=== PATIENT | male | born 1990 | race Caucasian/White ===

== ENCOUNTER 2024-12-31 08:07 | Day surgery (SDC) | payer OTHER, SELFPAY ==
[2024-12-25 10:05] VITALS: BMI 27.0
--- NOTE | 2024-12-31 06:03 | PM.HP.IH.1 ---
History of Present Illness History of Present Illness Date Patient Seen: 12/31/24 Time Patient Seen: 06:03 Chief complaint: SDC Narrative: Patient presents for laparoscopic RIHR this morning. [facility] Social History (Updated 11/06/24 @ 13:50 by Ankit Ivey MA) marital status: household members: spouse occupational status: employed Meds Home Medications and Allergies Allergies Allergy/AdvReac Type Severity Reaction Status Date / Time No Known Drug Allergies Allergy Unverified 11/06/24 13:30 Exam Narrative Exam Narrative: Const General: healthy appearing, comfortable and no acute distress Orientation: alert and oriented x3 HENMT Head: normal to inspection Ears: hearing grossly normal bilaterally Eyes Visual Fernandez: normal visual fernandez by confrontation Conjunctivae: conjunctivae normal Sclera: sclerae normal EOM: EOM intact bilaterally Neck Neck: normal visual inspection Resp Effort & Inspection: normal respiratory effort and able to speak in complete sentences Cardio Rate: regular rate GI Palpation: soft (non-tender) Other: +right inguinal hernia on palpation, reducible. LT side strong and intact. Extrem Other: without pitting edema Assessment & Plan Assessment and plan (1) Right inguinal hernia: Status: Acute Plan Right inguinal hernia - Plan laparoscopic right inguinal hernia repair with mesh (TEP) using no-tack technique. The risks, benefits and options regarding the procedure were explained to the patient in detail. Risk discussion included but not limited to: bleeding, infection, recurrence, urinary retention, chronic pain. The patient was encouraged to ask questions and they were answered to their satisfaction. The patient understands and is agreeable to proceed. Time-Based Coding :: [TOTAL MINUTES] spent with patient and on the chart (including review of chart, obtaining history, exam, reviewing outside data, placing orders, documenting exam and treatment plan, and counseling patient) on [DATE]. PROFEE Burr Picker Document charge(s): Yes Charge Codes Inpatient/observation care including admit and discharge same day: [id number]
[2024-12-31] MEDS: ACETAMINOPHEN 325 MG TABLET 975 MG PO (08:35)
[2024-12-31] MEDS: LACTATED RINGERS 1,000 ML 42 ML IV (08:37)
[2024-12-31 08:40] VITALS: BP 134/84; PULSE 76; RESP 15; TEMP 36.8; O2SAT 100; BMI 28.4
[2024-12-31] MEDS: SCOPOLAMINE 1 PATCH TOP (09:00)
[2024-12-31 10:10] VITALS: BP 141/81; PULSE 91; RESP 16; TEMP 36.5; O2SAT 98
--- NOTE | 2024-12-31 10:14 | P.OP_ITS ---
Operative Date/Time/Diagnoses Date of procedure: 12/31/24 Time of procedure: 10:14 Pre-op diagnosis: Right inguinal hernia Post-op diagnosis: same (Indirect right inguinal hernia, cord lipoma) Procedure & Clinicians Procedure: Laparoscopic right inguinal hernia repair with mesh TEP Same procedure(s) as scheduled: Yes Indications: 34yo M with symptomatic right inguinal hernia Surgeon: Calvin Shrestha Assisted?: No Anesthesia Type: General Operative Notes Findings: Indirect right inguinal hernia, large cord lipoma Closure Type: primary Specimen(s): none sent Applied: none Estimated Blood Loss (mL): 10 Blood products transfused: none Procedure in detail: After informed consent and satisfactory general endotracheal anesthesia, the groins were shaved, prepped and draped in the usual sterile manner.? The patient received appropriate preoperative antibiotics and DVT prophylaxis.? Surgical time-out was performed with all team members in agreement.? The correct side was marked in the preoperative holding area.? The preperitoneal space was entered via an infraumbilical incision.? An 0 Vicryl [id number] suture was placed on the anterior rectus sheath incision lateral to midline, ipsilateral to the side of the hernia.? The rectus muscle was retracted laterally and the preperitoneal space was dissected with a blunt 10 mm instrument.? The 10 mm trocar was inserted and the preperitoneal space was insufflated to a pressure of 12 mmHg with carbon dioxide gas.? This allowed direct visual placement of two 5 mm trocars in the suprapubic midline.? The patient was placed in Trendelenburg position.? We further dissected the preperitoneal space including the femoral, direct and indirect spaces.? We dissected out lateral and an ilioinguinal nerve block was performed under direct vision by injecting 10 cc of 0.5% Marcaine with epinephrine into the transversus muscle under direct vision 2 fingerbreadths medial to the anterior superior iliac spine.? A total of 30 cc of 0.5% Marcaine with epinephrine was used.? The remainder was injected into the musculature at the end of the procedure for postoperative analgesia.? Once the preperitoneal space was dissected free we noticed an indirect inguinal hernia. He also had a p rominent cord lipoma that was reduced. There were no direct or femoral defects.? The peritoneum was dissected proximally off of the cord structures to allow room for the mesh.?A large [employer] 3D Duramax mesh was selected and inserted into the preperitoneal space and unrolled until it was in perfect position and noted to lay in a flat position without wrinkling.? The mesh covered all 3 potential hernia defects widely.? Hemostasis was excellent throughout.? I held the lower border of the mesh with the grasper as we released the carbon dioxide and the peritoneum was noted to relax in a very pleasing manner against the mesh holding it in place.? No tacking or fixation was required. The trocars were remove and there was no bleeding noted at the trocar sites.? The 0 Vicryl [id number] suture was tied on the umbilical fascia with no palpable fascial defects.? The skin incisions were closed using 4-0 Monocryl in a subcuticular manner.? Dermabond glue was applied as a final dressing.? The instrument, sponge and needle counts were all correct x2.? The patient tolerated the procedure well and was extubated in the operating room and transported to the recovery area in stable condition. Complications: none Post-operative Condition: stable Disposition: PACU Plan for aftercare: PACU then home
[2024-12-31 10:15] VITALS: BP 149/84; PULSE 88; RESP 16; TEMP 36.4; O2SAT 99
[2024-12-31 10:20] VITALS: BP 151/77; PULSE 79; RESP 15; TEMP 36.4; O2SAT 98
[2024-12-31 10:26] VITALS: BP 144/73; PULSE 76; RESP 16; TEMP 36.3; O2SAT 98
[2024-12-31] MEDS: BENZOCAINE/MENTHOL 1 LOZ PKT 1 EACH PO (10:36)
[2024-12-31] MEDS: ONDANSETRON 4 MG/2 ML INJ IV (11:15)
== END 2024-12-31 11:40 | disposition home or self-care (01) ==
PROVIDERS: Referring Provider Surgery; Visit Provider Surgery
PROC: 0YQ54ZZ Repair Right Inguinal Region, Percutaneous Endoscopic Approach (ICD-10-PCS; CPT 49650; principal; 2024-12-31 09:15)
DX: K40.90 Unilateral inguinal hernia, without obstruction or gangrene, not specified as recurrent (principal); D17.6 Benign lipomatous neoplasm of spermatic cord
CPT/HCPCS: 49650; C1781; J0689; J1100; J1885; J2250; J2405; J2704; J3010; J3490; J7120